=== PATIENT | female | born 1975 | race Caucasian/White ===

== ENCOUNTER 2019-08-16 06:08 | Emergency (ER) | payer BC ==
[2019-08-16] MEDS ORDERED: Morphine 10 MG/ML Syringe IVPUSH ONE (06:44)
[2019-08-16] MEDS ORDERED: Sodium Chloride 0.9% 1,000 ML IV SCH (06:45)
[2019-08-16] MEDS ORDERED: Ketorolac 30 MG/ML SDV IVPUSH ONE (06:46)
[2019-08-16] MEDS ORDERED: Morphine 2 MG/ML SYRINGE IVPUSH ONE (06:46)
--- NOTE | 2019-08-16 06:58 | EDM.PDOC ---
ED HPI GENERAL MEDICAL PROBLEM - General Chief Complaint: Abdominal Pain Stated Complaint: lower abd and back pain Time Seen by Provider: 08/16/19 06:35 Source of Information: Reports: Patient History Limitations: Reports: No Limitations - History of Present Illness INITIAL COMMENTS - FREE TEXT/NARRATIVE: Princess is a 43 yo female who presents to the ED (ambulatory) with complaints of low abdominal pain. States the pain does radiate bilaterally to her lower back. Has history of kidney stones. Admits initially is started about 4 days ago. Initially thought it was menstrual cramps and she did start her period yesterday. States it appears to be a normal period for her. Admits she usually takes Tylenol and ibuprofen but it hasn't helped. Admits this morning around 2am the pain has progressively worsened. States the pain is about a 9 out of 10. Started her period yesterday. Around 0200 this morning pain started to increase. 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 Lower Abdominal Pain Score (Numeric/FACES): 9 - Related Data Allergies Allergy/AdvReac Type Severity Reaction Status Date / Time No Known Allergies Allergy Verified 08/16/19 06:09 Home Meds: Home Meds FLUoxetine [PROzac] 30 mg PO DAILY 08/16/19 [History] Past Medical History HEENT History: Reports: Other (See Below) Other HEENT History: nasal fracture Gastrointestinal History: Reports: Cholelithiasis, GERD Genitourinary History: Reports: Renal Calculus 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: Musculoskeletal History: Reports: Fracture Neurological History: Reports: Concussion, Migraines Psychiatric History: Reports: Depression - Past Surgical History HEENT Surgical History: Reports: LASIK, Naso-Sinus Surgery GI Surgical History: Reports: Cholecystectomy, Colonoscopy, EGD Female Surgical History: Reports: Section, Endometrial Ablation, Tubal Ligation Neurological Surgical History: Reports: None Musculoskeletal Surgical History: Reports: None Social & Family History - Family History Family Medical History: Noncontributory - Tobacco Use Smoking Status *Q: Former Smoker Used Tobacco, but Quit: Yes Month/Year Tobacco Last Used: 10 yrs ago - Caffeine Use Caffeine Use: Reports: Coffee - Recreational Drug Use Recreational Drug Use: No ED ROS GENERAL - Review of Systems Review Of Systems: See Below Constitutional: Denies: Fever, Chills, Decreased Appetite HEENT: Reports: No Symptoms Respiratory: Reports: No Symptoms Cardiovascular: Reports: No Symptoms GI/Abdominal: Reports: Abdominal Pain. Denies: Bloody Stool, Constipation, Diarrhea, Nausea, Vomiting : Reports: Flank Pain, Irregular Menses. Denies: Discharge, Dysuria, Frequency, Hematuria, Pain, Urgency Musculoskeletal: Reports: Back Pain (low) Skin: Reports: No Symptoms Neurological: Reports: No Symptoms ED EXAM, GI/ABD - Physical Exam Exam: See Below Exam Limited By: No Limitations General Appearance: Alert, Mild Distress Head: Atraumatic, Normocephalic Neck: Normal Inspection, Supple Respiratory/Chest: No Respiratory Distress, Lungs Clear, Normal Breath Sounds, No Accessory Muscle Use Cardiovascular: Regular Rate, Rhythm, No Murmur GI/Abdominal Exam: Normal Bowel Sounds, Soft, No Organomegaly, No Mass, Tender. No: Guarding Back Exam: No: CVA Tenderness (L), CVA Tenderness (R) Extremities: Normal Inspection, No Pedal Edema, Normal Capillary Refill Neurological: Alert, Oriented, Normal Cognition Psychiatric: Normal Affect, Normal Mood Skin Exam: Warm, Dry, Intact, Normal Color, No Rash Course - Vital Signs Last Recorded V/S: Last Vital Signs Temp 96.9 F 08/16/19 06:09 Pulse 94 08/16/19 06:09 Resp 20 08/16/19 06:09 BP 138/84 08/16/19 06:09 Pulse Ox 100 08/16/19 06:09 - Orders/Labs/Meds Orders: Active Orders 24 hr Category Date Time Status Abdomen Pelvis w Cont [CT] Routine Exams 08/16/19 07:19 Taken Sodium Chloride 0.9% [Normal Saline] 1,000 ml Med 08/16/19 06:45 Active IV ASDIRECTED Medication Orders Sodium Chloride (Normal Saline) 1,000 mls @ 150 mls/hr IV ASDIRECTED YAMILE Last Admin: 08/16/19 06:50 Dose: 150 mls/hr Labs: Laboratory Tests 08/16/19 08/16/19 08/16/19 Range/Units 06:25 06:30 06:30 WBC 8.9 (5.0-10.0) 10^3/uL RBC 4.69 (4.00-5.50) 10^6/uL Hgb 14.4 (12.0-16.0) g/dL Hct 42.4 (37.0-47.0) % MCV 90.4 (82.0-94.0) fL MCH 30.7 (27.0-32.0) pg MCHC 34.0 (33.0-38.0) g/dL RDW Coeff of [place] 12.2 (11.0-15.0) % Plt Count 253 (150-400) 10^3/uL Neut % (Auto) 72.6 (35-85) % Lymph % (Auto) 17.4 (10-55) % [place] % (Auto) 7.1 (0-16) % Eos % (Auto) 2.8 (0-5) % Baso % (Auto) 0.1 (0-3) % Neut # (Auto) 6.42 (1.80-7.00) 10^3/uL Lymph # (Auto) 1.54 (1.00-4.80) 10^3/uL [place] # (Auto) 0.63 (0.00-0.80) 10^3/uL Eos # (Auto) 0.25 (0.00-0.45) 10^3/uL Baso # (Auto) 0.01 10^3/uL Sodium 141 (136-145) mEq/L Potassium 4.2 (3.5-5.0) mEq/L Chloride 104 (98-106) mEq/L Carbon Dioxide 30 (21-32) mmol/L BUN 11 (7-18) mg/dL Creatinine 0.8 (0.6-1.0) mg/dL Est Cr Clr Drug Dosing 86.63 mL/min Estimated GFR (MDRD) > 60 (>=60) mL/min Glucose 102 H (75-99) mg/dL Calcium 8.5 (8.4-10.1) mg/dL Total Bilirubin 0.4 (0.0-1.0) mg/dL AST 19 (15-37) U/L ALT 29 (12-78) U/L Alkaline Phosphatase 65 (46-116) U/L C-Reactive Protein 0.2 (0.2-0.8) mg/dL Total Protein 7.2 (6.4-8.2) g/dL Albumin 3.8 (3.4-5.0) g/dL Amylase 46 (25-115) U/L Urine Color Yellow (YELLOW) Urine Appearance Clear (CLEAR) Urine pH 7.5 (4.5-8.0) Ur Specific [place] 1.025 H (1.003-1.020) Urine Protein Negative (NEGATIVE) mg/dL Urine Glucose (UA) Negative (NEGATIVE) mg/dL Urine Ketones Negative (NEGATIVE) mg/dL Urine Occult Blood Small H (NEGATIVE) Urine Nitrite Negative (NEGATIVE) Urine Bilirubin Negative (NEGATIVE) Urine Urobilinogen 0.2 (0.2-1.0) EU/dL Ur Leukocyte Esterase Negative (NEGATIVE) Urine RBC 0-5 (0-5) /HPF Urine WBC 0-5 (0-5) /HPF Ur Epithelial Cells Moderate H (NOT SEEN) /HPF Meds: Medications Generic Name Dose Route Start Last Admin Trade Name Freq PRN Reason Stop Dose Admin Sodium Chloride 1,000 mls @ 150 mls/hr 08/16/19 06:45 08/16/19 06:50 Normal Saline IV 150 mls/hr ASDIRECTED YAMILE Administration Discontinued Medications Generic Name Dose Route Start Last Admin Trade Name Freq PRN Reason Stop Dose Admin Iopamidol 100 ml 08/16/19 07:45 08/16/19 07:57 [id number] (76%) IVPUSH 08/16/19 07:46 100 ml ONETIME ONE Administration Ketorolac Tromethamine 15 mg 08/16/19 06:46 08/16/19 06:55 Toradol IVPUSH 08/16/19 06:47 15 mg ONETIME ONE Administration Morphine Sulfate 4 mg 08/16/19 06:44 08/16/19 06:55 Morphine IVPUSH 08/16/19 06:45 Not Given ONETIME ONE Morphine Sulfate 2 mg 08/16/19 06:46 08/16/19 06:51 Morphine IVPUSH 08/16/19 06:47 2 mg ONETIME ONE Administration Departure - Departure Time of Disposition: 09:38 Disposition: Home, Self-Care 01 Clinical Impression: Abdominal pain of unknown etiology, Dysmenorrhea - Discharge Information Instructions: Abdominal Pain, Adult, [id number], Dysmenorrhea, [id number] Forms: ED Department Discharge Additional Instructions: 1) Ketorolac 10mg - 1 tablet every 6-8 hours as needed for discomfort 2) Rest today 3) May continue to apply heat pad for relief 4) Continue with appointment at customer engineer on August 28 5) Return if any fevers, increased discomfort, or any concerns at all. Sepsis Event Note - Evaluation Sepsis Screening Result: No Definite Risk - Focused Exam Vital Signs: Vital Signs Temp Pulse Resp BP Pulse Ox 08/16/19 06:09 96.9 F 94 20 138/84 100 Date Exam was Performed: 08/16/19 Time Exam was Performed: 09:38 - Problem List & Annotations (1) Abdominal pain of unknown etiology SNOMED Code(s): 515606643 Code(s): R10.9 - UNSPECIFIED ABDOMINAL PAIN Status: Acute Current Visit: Yes (2) Dysmenorrhea SNOMED Code(s): 742462808 Code(s): N94.6 - DYSMENORRHEA, UNSPECIFIED Status: Acute Current Visit: Yes - My Orders Last 24 Hours: My Active Orders 08/16/19 06:45 Sodium Chloride 0.9% [Normal Saline] 1,000 ml IV ASDIRECTED 08/16/19 07:19 Abdomen Pelvis w Cont [CT] Routine - Assessment/Plan Last 24 Hours: My Active Orders 08/16/19 06:45 Sodium Chloride 0.9% [Normal Saline] 1,000 ml IV ASDIRECTED 08/16/19 07:19 Abdomen Pelvis w Cont [CT] Routine Plan: CT of the abdomen/pelvis is unremarkable per radiologist at [facility]. No acute findings. Labs overall normal today, no concerning findings. Pain has improved significantly and will discharge at this time in satisfactory condition.
[2019-08-16 07:15] LABS: CHLORIDE,CL 104 mEq/L (98-106); SODIUM,NA 141 mEq/L (136-145)
[2019-08-16] MEDS ORDERED: Iopamidol 755 Mg/ML 100 ML Bottle IVPUSH ONE (07:45)
== END 2019-08-16 09:55 | disposition home or self-care (01) ==
LOC: CC.ED 06:08
DX: N94.6 Dysmenorrhea, unspecified (principal); F32.9 Major depressive disorder, single episode, unspecified; Z87.891 Personal history of nicotine dependence; Z79.899 Other long term (current) drug therapy
CPT/HCPCS: 36415; 74177; 80053; 81001; 82150; 85025; 86140; 96361; 96374; 96375; 99284; J1885; J2270; J7030; Q9967

== ENCOUNTER 2020-08-23 00:51 | Emergency (ER) | payer BC ==
[2020-08-23 01:22] LABS: CHLORIDE,CL 103 mEq/L (98-106); SODIUM,NA 141 mEq/L (136-145)
[2020-08-23] MEDS ORDERED: Ketorolac 30 MG/ML SDV IVPUSH ONE ×2 (01:25)
--- NOTE | 2020-08-23 01:31 | EDM.PDOC ---
ED HPI GENERAL MEDICAL PROBLEM - General Chief Complaint: Abdominal Pain Stated Complaint: left abdominal pain Time Seen by Provider: 08/23/20 01:05 Source of Information: Reports: Patient History Limitations: Reports: No Limitations - History of Present Illness INITIAL COMMENTS - FREE TEXT/NARRATIVE: Princess is a 44 year old female who presents to ER with complaints of left l ower quadrant pain. Started having pain at 1300 today. Vomited x1. Has history of constipation, has not had a bowel movement for one week so has tried dulcolax and a fleets enema without relief. Pain is increasing over the evening. Did eat and drink today. No fevers. No cough or upper respiratory concerns. Also reports history of kidney stones that have felt similar to this. Currently has her menses. No burning with urination. No frequency. Onset: Today, Gradual Duration: Hour(s):, Getting Worse Location: Reports: Abdomen Quality: Reports: Ache, Sharp Severity: Severe Improves with: Reports: None Associated Symptoms: Reports: Nausea/Vomiting. 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: Musculoskeletal History: Reports: Fracture Neurological History: Reports: Concussion, Migraines Psychiatric History: Reports: Depression - Past Surgical History HEENT Surgical History: Reports: LASIK, Naso-Sinus Surgery GI Surgical History: Reports: Cholecystectomy, Colonoscopy, EGD Female Surgical History: Reports: Section, Endometrial Ablation, Tubal Ligation Neurological Surgical History: Reports: None Musculoskeletal Surgical History: Reports: None Social & Family History - Family History Family Medical History: No Pertinent Family History - Tobacco Use Tobacco Use Status *Q: Never Tobacco User - Caffeine Use Caffeine Use: Reports: Coffee ED ROS GENERAL - Review of Systems Review Of Systems: See Below Constitutional: Denies: Fever, Chills, Malaise, Weakness, Decreased Appetite HEENT: Denies: Ear Pain, Rhinitis, Sinus Problem, Throat Pain Respiratory: Denies: Shortness of Breath, Cough Cardiovascular: Denies: Chest Pain, Edema, Lightheadedness Endocrine: Denies: Fatigue GI/Abdominal: Reports: Abdominal Pain, Constipation, Nausea, Vomiting : Reports: No Symptoms Musculoskeletal: Reports: No Symptoms Skin: Reports: No Symptoms Neurological: Reports: No Symptoms ED EXAM, GI/ABD - Physical Exam Exam: See Below Exam Limited By: No Limitations General Appearance: Alert, WD/WN, Moderate Distress Ears: Normal External Exam, Normal TMs Nose: Normal Inspection, Normal Mucosa, No Blood Throat/Mouth: Normal Inspection, Normal Oropharynx Head: Normocephalic Neck: Normal Inspection, Supple, Non-Tender Respiratory/Chest: No Respiratory Distress, Lungs Clear, Normal Breath Sounds Cardiovascular: Regular Rate, Rhythm GI/Abdominal Exam: Soft, Tender (bilateral lower quadrants, suprapubic area. ), Abnormal Bowel Sounds Back Exam: Normal Inspection, CVA Tenderness (L) Extremities: Normal Inspection, No Pedal Edema Neurological: Alert, Oriented Skin Exam: Warm, Dry Course - Vital Signs Last Recorded V/S: Last Vital Signs Temp 98.3 F 08/23/20 01:39 Pulse 86 08/23/20 01:00 Resp 20 08/23/20 01:00 BP 139/98 H 08/23/20 01:00 Pulse Ox 96 08/23/20 01:00 - Orders/Labs/Meds Orders: Active Orders 24 hr Category Date Time Status Abdomen 2V AP Flat Upright [CR] Stat Exams 08/23/20 01:18 Taken Abdomen Pelvis wo Cont [CT] Stat Exams 08/23/20 01:23 Taken Acetaminophen/HYDROcodone [Take Home: Acetaminophen/ Med 08/23/20 02:48 Once HYDROcod, 2 Tab Pack] 1 packet PO ONETIME ONE Sodium Chloride 0.9% [Normal Saline] 1,000 ml Med 08/23/20 01:45 Active IV ASDIRECTED Medication Orders Sodium Chloride (Normal Saline) 1,000 mls @ 150 mls/hr IV ASDIRECTED YAMILE Last Admin: 08/23/20 01:48 Dose: 150 mls/hr Documented by: WAYNE Labs: Laboratory Tests 08/23/20 08/23/20 08/23/20 Range/Units 00:58 00:58 00:58 WBC 12.7 H (5.0-10.0) 10^3/uL RBC 4.58 (4.00-5.50) 10^6/uL Hgb 14.2 (12.0-16.0) g/dL Hct 41.6 (37.0-47.0) % MCV 90.8 (82.0-94.0) fL MCH 31.0 (27.0-32.0) pg MCHC 34.1 (33.0-38.0) g/dL RDW Coeff of [place] 12.1 (11.0-15.0) % Plt Count 275 (150-400) 10^3/uL Neut % (Auto) 85.3 H (35-85) % Lymph % (Auto) 8.1 L (10-55) % [place] % (Auto) 4.9 (0-16) % Eos % (Auto) 1.5 (0-5) % Baso % (Auto) 0.2 (0-3) % Neut # (Auto) 10.86 H (1.80-7.00) 10^3/uL Lymph # (Auto) 1.03 (1.00-4.80) 10^3/uL [place] # (Auto) 0.63 (0.00-0.80) 10^3/uL Eos # (Auto) 0.19 (0.00-0.45) 10^3/uL Baso # (Auto) 0.02 10^3/uL Sodium 141 (136-145) mEq/L Potassium 3.4 L (3.5-5.0) mEq/L Chloride 103 (98-106) mEq/L Carbon Dioxide 26 (21-32) mmol/L BUN 15 (7-18) mg/dL Creatinine 0.9 (0.6-1.0) mg/dL Est Cr Clr Drug Dosing 76.23 mL/min Estimated GFR (MDRD) > 60 (>=60) mL/min Glucose 123 H (75-99) mg/dL Calcium 8.9 (8.4-10.1) mg/dL Magnesium 1.7 L (1.8-2.4) mg/dL Total Bilirubin 0.9 (0.0-1.0) mg/dL AST 17 (15-37) U/L ALT 29 (12-78) U/L Alkaline Phosphatase 67 (46-116) U/L C-Reactive Protein < 0.2 L (0.2-0.8) mg/dL Total Protein 7.3 (6.4-8.2) g/dL Albumin 4.0 (3.4-5.0) g/dL Urine Color Yellow (YELLOW) Urine Appearance Slightly cloudy (CLEAR) Urine pH 6.0 (4.5-8.0) Ur Specific [place] 1.025 H (1.003-1.020) Urine Protein Negative (NEGATIVE) mg/dL Urine Glucose (UA) Negative (NEGATIVE) mg/dL Urine Ketones 40 H (NEGATIVE) mg/dL Urine Occult Blood Large H (NEGATIVE) Urine Nitrite Negative (NEGATIVE) Urine Bilirubin Negative (NEGATIVE) Urine Urobilinogen 0.2 (0.2-1.0) EU/dL Ur Leukocyte Esterase Trace H (NEGATIVE) Urine RBC 50-75 H (0-5) /HPF Urine WBC 0-5 (0-5) /HPF Ur Epithelial Cells Occasional H (NOT SEEN) /HPF Urine Bacteria Few H (NOT SEEN) /HPF Urine Mucus Occasional H (NOT SEEN) /HPF Meds: Medications Generic Name Dose Route Start Last Admin Trade Name Freq PRN Reason Stop Dose Admin Sodium Chloride 1,000 mls @ 150 mls/hr 08/23/20 01:45 08/23/20 01:48 Normal Saline IV 150 mls/hr ASDIRECTED YAMILE Administration Discontinued Medications Generic Name Dose Route Start Last Admin Trade Name Freq PRN Reason Stop Dose Admin Fentanyl 25 mcg 08/23/20 01:44 08/23/20 01:47 Fentanyl 50 Mcg/Ml Sdv IVPUSH 08/23/20 01:45 25 mcg ONETIME ONE Administration Ketorolac Tromethamine 30 mg 08/23/20 01:25 08/23/20 01:26 Ketorolac 30 Mg/Ml Sdv IVPUSH 08/23/20 01:26 Not Given ONETIME ONE Ketorolac Tromethamine 30 mg 08/23/20 01:25 08/23/20 01:29 Ketorolac 30 Mg/Ml Sdv IVPUSH 08/23/20 01:26 30 mg ONETIME ONE Administration - Re-Assessments/Exams Free Text/Narrative Re-Assessment/Exam: 08/23/20 02:49 Labs are all normal. Xray of abdomen is unremarkable. Due to persistent pain, CT scan done of abdomen. Read as negative, only small stones in the kidneys, mild amount of stool. Questions gastroenteritis. Patient informed. States has had 2 prior episodes just like this where couldn't find source of pain. Took IV pain meds and over time, pain resolved. Has been to GI, had scopes done without finding a source of her pain. Has had 2 previous C-Sections and her gallbladder removed in the past, question possibly adhesions. Departure - Departure Time of Disposition: 02:57 Disposition: Home, Self-Care 01 Condition: Fair Clinical Impression: Abdominal pain of unknown etiology - Discharge Information *PRESCRIPTION DRUG MONITORING PROGRAM REVIEWED*: No *COPY OF PRESCRIPTION DRUG MONITORING REPORT IN PATIENT SRINIVAS: No Instructions: Abdominal Pain, Adult, [id number] Referrals: PCP,None [Primary Care Provider] - Forms: ED Department Discharge Additional Instructions: 1. Push fluids 2. Ibuprofen or if needed, [place] 1-2 tabs every 6 hours as needed for pain 3. Dulcolax tablets for constipation as needed 4. Follow up with primary care provider if persisting pain Sepsis Event Note (ED) - Evaluation Sepsis Screening Result: No Definite Risk - Focused Exam Vital Signs: Vital Signs Temp Pulse Resp BP Pulse Ox 08/23/20 01:39 98.3 F 08/23/20 01:00 97.2 F 86 20 139/98 H 96 - My Orders Last 24 Hours: My Active Orders 08/23/20 01:18 Abdomen 2V AP Flat Upright [CR] Stat 08/23/20 01:23 Abdomen Pelvis wo Cont [CT] Stat 08/23/20 01:45 Sodium Chloride 0.9% [Normal Saline] 1,000 ml IV ASDIRECTED 08/23/20 02:48 Acetaminophen/HYDROcodone [Take Home: Acetaminophen/HYDROcod, 2 Tab Pack] 1 packet PO ONETIME ONE - Assessment/Plan Last 24 Hours: My Active Orders 08/23/20 01:18 Abdomen 2V AP Flat Upright [CR] Stat 08/23/20 01:23 Abdomen Pelvis wo Cont [CT] Stat 08/23/20 01:45 Sodium Chloride 0.9% [Normal Saline] 1,000 ml IV ASDIRECTED 08/23/20 02:48 Acetaminophen/HYDROcodone [Take Home: Acetaminophen/HYDROcod, 2 Tab Pack] 1 packet PO ONETIME ONE
[2020-08-23] MEDS ORDERED: fentaNYL 50 MCG/ML SDV IVPUSH ONE (01:44)
[2020-08-23] MEDS ORDERED: Sodium Chloride 0.9% 1,000 ML IV SCH (01:45)
[2020-08-23] MEDS ORDERED: Take Home: Acetaminophen/HYDROcodone 325-5 MG, 2 Tab Pack PO ONE (02:48)
== END 2020-08-23 03:06 | disposition home or self-care (01) ==
LOC: CC.ED 00:51
DX: R10.31 Right lower quadrant pain (principal); R10.32 Left lower quadrant pain; Z90.49 Acquired absence of other specified parts of digestive tract
CPT/HCPCS: 36415; 74019; 74176; 80053; 81001; 83735; 85025; 86140; 96374; 96375; 99284-25; A9270-GY; J1885; J3010; J7030

== ENCOUNTER 2022-09-21 08:58 | Emergency (ER) | payer BC ==
[2022-09-21 09:26] LABS: BASOPHILS ABSOLUTE AUTO 0.01 10^3/uL (0.00-0.50); BASOPHILS PERCENT AUTO 0.1 % (0-1); EOSINOPHILS ABSOLUTE AUTO 0.07 10^3/uL (0.00-1.50); EOSINOPHILS PERCENT AUTO 0.6 % (0-6); HEMATOCRIT 43.3 % (37.0-47.0); HEMOGLOBIN 14.5 g/dL (12.0-16.0); IMMATURE GRAN ABSOLUTE AUTO 0.01 10^3/uL (0.00-0.49); IMMATURE GRAN PERCENT AUTO 0.1 % (0.0-4.9); LYMPHOCYTES ABSOLUTE AUTO 1.34 10^3/uL (0.60-5.00); MEAN CORPUSCULAR HEMOGLOBIN 30.2 pg (27.0-32.0); MEAN CORPUSCULAR HGB CONC 33.5 g/dL (32.0-36.0); MEAN CORPUSCULAR VOLUME 90.2 fL (83.0-97.0); MONOCYTES ABSOLUTE AUTO 0.68 10^3/uL (0.00-1.50); MONOCYTES PERCENT AUTO 6.1 % (0-10); NEUTROPHILS ABSOLUTE AUTO 9.02 x10^3/uL (1.80-8.00); NEUTROPHILS PERCENT AUTO 81.1 % (41-71); PLATELET COUNT,PLT 304 10^3/uL (150-400); WHITE BLOOD CELL COUNT,WBC 11.1 10^3/uL (4.0-11.0)
[2022-09-21 09:29] LABS: APPEARANCE,URINE CLOUDY (CLEAR); BILIRUBIN,URINE NEGATIVE (NEGATIVE); COLOR,URINE YELLOW (YELLOW); GLUCOSE,URINE NEGATIVE (NEGATIVE); KETONES,URINE 15 mg/dL (NEGATIVE); LEUKOCYTE ESTERASE,URINE NEGATIVE (NEGATIVE); NITRITE,URINE NEGATIVE (NEGATIVE); OCCULT BLOOD,URINE LARGE (NEGATIVE); PH,URINE 8.5 (4.5-8.0); PROTEIN,URINE NEGATIVE (NEGATIVE); UROBILINOGEN,URINE 0.2 EU/dL (0.2-1.0)
[2022-09-21] MEDS: Ketorolac 30 MG/ML SDV IVPUSH ONE (09:29)
[2022-09-21 09:32] LABS: CALCIUM 9.5 mg/dL (8.4-10.1); EST CRCL DRUG DOSING (CG) 74.67 mL/min; MAGNESIUM 1.7 mg/dL (1.8-2.4); POTASSIUM,K 4.4 mEq/L (3.5-5.0)
[2022-09-21] MEDS: Sodium Chloride 0.9% 1,000 ML IV ONE (09:33)
[2022-09-21 09:36] LABS: AMORPHOUS SEDIMENT,URINE MANY /HPF (NOT SEEN); BACTERIA,URINE FEW /HPF (NOT SEEN); RBC,URINE >100 /HPF (0-5); SQUAMOUS EPITHELIAL CELLS,UR MODERATE /HPF (NOT SEEN); WBC,URINE NOT SEEN /HPF (0-5)
[2022-09-21 09:44] LABS: ALBUMIN 3.9 g/dL (3.4-5.0); BILIRUBIN TOTAL 0.6 mg/dL (0.0-1.0); CREATININE 0.9 mg/dL (0.6-1.0); PROTEIN TOTAL,TP 7.3 g/dL (6.4-8.2)
[2022-09-21] MEDS: Morphine 4 MG/ML VIAL IVPUSH ONE (09:59)
[2022-09-21] MEDS: Tamsulosin 0.4 MG Cap.ER PO ONE (10:07)
[2022-09-21] MEDS: Acetaminophen/HYDROcodone 325-5 MG Tab PO PRN (10:49)
[2022-09-21] MEDS: Take Home: Acetaminophen/HYDROcodone 325-5 MG, 2 Tab Pack PO ONE (11:27)
== END 2022-09-21 11:36 | disposition home or self-care (01) ==
LOC: CC.ED 08:58
DX: N13.2 Hydronephrosis with renal and ureteral calculous obstruction (principal)
CPT/HCPCS: 36415; 74176; 80053; 81001; 83735; 85025; 96361; 96374; 96375; 99284; 99284-25; A9270-GY; J1885; J2270; J7030

== ENCOUNTER 2022-10-15 02:58 | Emergency (ER) | payer BC ==
[2022-10-15 03:02] VITALS: BP 109/69; PULSE 70
[2022-10-15] MEDS: Sodium Chloride 0.9% 1,000 ML IV ONE (03:22)
[2022-10-15] MEDS: Ketorolac 30 MG/ML SDV IVPUSH ONE (03:22)
[2022-10-15 03:33] LABS: BASOPHILS ABSOLUTE AUTO 0.02 10^3/uL (0.00-0.50); BASOPHILS PERCENT AUTO 0.2 % (0-1); EOSINOPHILS ABSOLUTE AUTO 0.18 10^3/uL (0.00-1.50); EOSINOPHILS PERCENT AUTO 1.7 % (0-6); HEMATOCRIT 40.8 % (37.0-47.0); HEMOGLOBIN 13.8 g/dL (12.0-16.0); IMMATURE GRAN ABSOLUTE AUTO 0.01 10^3/uL (0.00-0.49); IMMATURE GRAN PERCENT AUTO 0.1 % (0.0-4.9); LYMPHOCYTES ABSOLUTE AUTO 1.17 10^3/uL (0.60-5.00); LYMPHOCYTES PERCENT AUTO 10.9 % (24-44); MEAN CORPUSCULAR HEMOGLOBIN 30.8 pg (27.0-32.0); MEAN CORPUSCULAR HGB CONC 33.8 g/dL (32.0-36.0); MEAN CORPUSCULAR VOLUME 91.1 fL (83.0-97.0); MONOCYTES ABSOLUTE AUTO 0.58 10^3/uL (0.00-1.50); MONOCYTES PERCENT AUTO 5.4 % (0-10); NEUTROPHILS ABSOLUTE AUTO 8.76 x10^3/uL (1.80-8.00); NEUTROPHILS PERCENT AUTO 81.7 % (41-71); PLATELET COUNT,PLT 268 10^3/uL (150-400); RED BLOOD CELL COUNT 4.48 x10^6/uL (4.00-5.50); WHITE BLOOD CELL COUNT,WBC 10.7 10^3/uL (4.0-11.0)
[2022-10-15 03:40] LABS: APPEARANCE,URINE TURBID (CLEAR); BILIRUBIN,URINE NEGATIVE (NEGATIVE); COLOR,URINE RED (YELLOW); GLUCOSE,URINE NEGATIVE (NEGATIVE); KETONES,URINE NEGATIVE (NEGATIVE); LEUKOCYTE ESTERASE,URINE NEGATIVE (NEGATIVE); NITRITE,URINE NEGATIVE (NEGATIVE); OCCULT BLOOD,URINE MODERATE (NEGATIVE); PROTEIN,URINE >=300 mg/dL (NEGATIVE); UROBILINOGEN,URINE 0.2 EU/dL (0.2-1.0)
[2022-10-15 03:45] LABS: BACTERIA,URINE NOT SEEN /HPF (NOT SEEN); RBC,URINE PACKED /HPF (0-5); SQUAMOUS EPITHELIAL CELLS,UR NOT SEEN /HPF (NOT SEEN); WBC,URINE NOT SEEN /HPF (0-5)
[2022-10-15 03:47] LABS: ALBUMIN 3.6 g/dL (3.4-5.0); BILIRUBIN TOTAL 0.4 mg/dL (0.0-1.0); CREATININE 0.8 mg/dL (0.6-1.0); EST CRCL DRUG DOSING (CG) 80.75 mL/min; POTASSIUM,K 4.1 mEq/L (3.5-5.0); PROTEIN TOTAL,TP 6.9 g/dL (6.4-8.2)
[2022-10-15] MEDS: Morphine 2 MG/ML SYRINGE IVPUSH ONE (04:04)
[2022-10-15] MEDS: Tamsulosin 0.4 MG Cap.ER PO ONE (05:16)
[2022-10-15] MEDS ORDERED: Tamsulosin 0.4 MG Cap.ER ONE (05:20)
== END 2022-10-15 05:22 | disposition home or self-care (01) ==
LOC: CC.ED 02:58
DX: N20.0 Calculus of kidney (principal)
CPT/HCPCS: 36415; 74176; 80053; 81001; 83690; 85025; 96374; 96375; 99284; 99284-25; A9270-GY; J1885; J2270; J7030